=== PATIENT | female | born 1955 | race Caucasian/White ===

== ENCOUNTER 2018-07-22 17:00 | Inpatient (IN) | payer BC ==
[~2018-07-22] VITALS: Ht 167.6 cm; Wt 90.8 kg
--- NOTE | ~2018-07-22 | ST ---
[place], [place] EXERCISE STRESS TEST REPORT NAME: VICKEY DÍAZ UNIT #: [id number] ROOM: 405 DOCTOR: MARTIN MORGAN MD BIRTHDATE: [birth year] DOS: 07/23/2018 TREADMILL TEST WITH CARDIOLITE The patient is a 62-year-old female admitted to [facility] with complaints of chest pains. Cardiac enzymes were checked. The patient was tested under standard Jose protocol and she exercised for a total of 6 minutes, reaching a heart rate of 142 beats per minute, which was 89% of the PMHR. The test was stopped because of patient's fatigue. Blood pressures ranged between 144 systolic over 90 diastolic to as high as 180 systolic over 86 diastolic, heart rate ranged between 74 to 142 beats per minute. The patient remained without chest pains. The patient was injected with Cardiolite during the peak phase of exercise. IMPRESSION: Normal EKG part of the treadmill Cardiolite nuclear stress test at 89% predicted maximal heart rate. Cardiolite results to be reported separately by Dr. Cardenas later today. MARTIN MORGAN MD CM:STRESS:EXERCISE STRESS TEST REPORT [id number] MARTIN MORGAN MD
--- NOTE | ~2018-07-22 | WRIGHTHP ---
[place], [place] PATIENT HISTORY AND PHYSICAL EXAM [id number] UNIT #: [id number] ROOM: 405 DOCTOR: MARTIN MORGAN MD BIRTHDATE: [birth year] DOS: 07/22/2018 HISTORY OF PRESENT ILLNESS: The patient is a 62-year-old female with complaints of chest pains, was admitted and ruled out for myocardial infarction with serial cardiac enzymes. Finally, the patient was taken for a cardiac stress test. No shortness of breath, nausea or diaphoresis. The pains were in the front of her chest and back and lasted about 2 hours yesterday. PAST MEDICAL HISTORY: 1. Hypothyroidism. 2. Benign essential hypertension. 3. Kidney stones. 4. Chronic pain syndrome. 5. Type 2 diabetes mellitus. 6. GERD and esophagitis. 7. Chronic lower back pains. REVIEW OF SYSTEMS: CARDIOVASCULAR: No complaints of palpitation. The patient had chest pains. RESPIRATORY: No increasing shortness of breath or wheezing. GASTROINTESTINAL: No nausea, vomiting, diarrhea, constipation. FAMILY HISTORY: Noncontributory. HOME MEDICATIONS: Victoza, Tylenol, Soma, Vicodin. ALLERGIES: Known allergies to MORPHINE. PHYSICAL EXAMINATION: GENERAL: Alert, oriented x 3, in no visible distress, moderately obese. HEENT AND NECK: Extraocular movements are intact. Sclerae are anicteric. Oral mucosa is moist and clean. No obvious facial weakness. Neck is supple without any lymphadenopathy. No thyromegaly. No JVD. No carotid arterial bruits. LUNGS: Clear to auscultation. No wheezing. No rhonchi. CARDIOVASCULAR SYSTEM: Heart rate is regular in rate and rhythm. S1 and S2 normally audible. No significant murmur or any other abnormal cardiac sounds. ABDOMEN: Soft, nontender. No obvious organomegaly. Bowel sounds are present. No obvious herniation. EXTREMITIES: Without significant cyanosis or edema. Warm to touch. CENTRAL NERVOUS SYSTEM: Alert and oriented x 3. Cranial nerves II-XII are intact. Speech is normal. The patient is able to move all extremities. Normal muscle strength. Deep tendon reflexes are equal on both sides. Plantars were downgoing. LABORATORY DATA: Three negative troponin I levels. IMPRESSION AND PLAN: 1. 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 If test is also negative, she will be discharged to home. [place], [place] PATIENT HISTORY AND PHYSICAL EXAM NAME: VICKEY DÍAZ UNIT #: [id number] ROOM: 405 DOCTOR: EDDIE ROSS,MARTIN Rodriguez BIRTHDATE: [birth year] 2. Chronic lower back pains and lumbar spondylosis, treated with Soma and hydrocodone. 3. Benign essential hypertension with elevated blood pressures, which we will continue to self-regulate as an outpatient. 4. Type 2 diabetes mellitus. The patient's Victoza was continued. MARTIN MORGAN MD CM:HISPHYS:PATIENT HISTORY AND PHYSICAL EXAMINATION [id number] MARTIN MORGAN MD 07/23/18 0923 interface
[~2018-07-22 17:00] MED LIST: AMOXICILLIN875 MG PO; AUGMENTIN 875875 MG PO; CARISOPRODOL350 M1 PO; FLUTICASON0.05 MG/AC NAS; LEVOXYL0.125 MG PO; OMEPRAZOLE20 M2 PO; VALSARTAN160 MG PO; VICODIN ES 7.51 EACH PO; VICTOZA6 MG/ML SC
[2018-07-22 17:53] VITALS: BP 185/75
[2018-07-22 20:00] VITALS: BP 156/88
[2018-07-23] VITALS: BP 180/90
[2018-07-23 01:40] VITALS: BP 160/84
[2018-07-23 08:00] VITALS: BP 158/90
[2018-07-23 12:00] VITALS: BP 148/74
== END 2018-07-23 12:55 | disposition home or self-care (01) | DRG 313 ==
LOC: 4E 17:00
PROC: 4A02XM4 Measurement of Cardiac Total Activity, External Approach (ICD-10-PCS; principal; 2018-07-23)
PROC: 3E073KZ Introduction of Other Diagnostic Substance into Coronary Artery, Percutaneous Approach (ICD-10-PCS; principal; 2018-07-23)
DX: R07.9 Chest pain, unspecified (principal); K21.9 Gastro-esophageal reflux disease without esophagitis; I10 Essential (primary) hypertension; G89.4 Chronic pain syndrome; E11.9 Type 2 diabetes mellitus without complications; E03.9 Hypothyroidism, unspecified; M54.5 Low back pain; M47.896 Other spondylosis, lumbar region; Z87.442 Personal history of urinary calculi; Z88.5 Allergy status to narcotic agent

== ENCOUNTER 2020-03-24 16:27 | Emergency (ER) | payer BC ==
[~2020-03-24] VITALS: Ht 167.6 cm; Wt 86.2 kg
[2020-03-24 17:37] LABS: BASO % 0.4 % (0.0-1.0); EOS % 0.2 % (1.0-4.0); HEMATOCRIT 44.9 % (37.0-47.0); LYMPH # 0.8 10*3/uL (1.3-4.4); LYMPH % 14.8 % (27.0-41.0); MEAN CELL VOLUME 84.7 fl (81.0-99.0); MEAN CORPUSCULAR HGB 28.1 pg (27.0-31.0); MEAN CORPUSCULAR HGB CONC 33.2 g/dl (33.0-37.0); MONO # 0.4 10*3/uL (0.1-1.0); MONO % 7.3 % (3.0-9.0); NEUT % 77.1 % (47.0-73.0); PLATELET COUNT AUTOMATED 237 10*3/uL (130-400); RED CELL DISTRI WIDTH 12.6 % (0-14.5); WHITE BLOOD COUNT 5.2 10*3/uL (4.8-10.8)
[2020-03-24 17:49] LABS: ACT PARTIAL THROMBO TIME 26.6 SECONDS (20.0-32.1)
[2020-03-24 17:54] LABS: ALBUMIN 3.5 gm/dl (3.1-4.5); ALKALINE PHOSPHATASE 146 U/L (45-117); BUN 15 mg/dl (7-24); CHLORIDE 105 mmol/L (98-107); CREATININE 1.22 mg/dL (0.55-1.02); LDH 223 U/L (84-246); POTASSIUM 4.1 mmol/L (3.5-5.1); SGOT/AST 39 IU/L (3-35); SGPT/ALT 59 U/L (12-78); SODIUM 137 mmol/L (136-145); TOTAL PROTEIN 7.9 gm/dL (6.4-8.2)
[2020-03-24 17:55] LABS: TROPONIN I < 0.015 ng/ml (<0.045)
[2020-03-24 18:52] VITALS: BP 137/65
[2020-03-24 19:28] LABS: BACTERIA 2+; BILIRUBIN NEGATIVE (NEGATIVE); BLOOD NEGATIVE (NEGATIVE); CALCIUM OXALATE CRYSTALS 2+; CLARITY SL CLOUDY (CLEAR); COLOR YELLOW (YELLOW); GLUCOSE NEGATIVE (NEGATIVE); KETONE NEGATIVE (NEGATIVE); LEUKO ESTERASE 1+ (NEGATIVE); MUCOUS 2+; NITRITE NEGATIVE (NEGATIVE); PH 6.5 (5.0-9.0); SPECIFIC GRAVITY 1.015 (1.005-1.030); UROBILINOGEN 0.2 E.U./dl (0.2-1.0); WBC 41-50 wbc/hpf (0-5)
== END 2020-03-24 19:45 | disposition home or self-care (01) ==
LOC: ED 16:27
PROVIDERS: Emergency Medicine
DX: B34.9 Viral infection, unspecified (principal); R79.82 Elevated C-reactive protein (CRP); D72.810 Lymphocytopenia; R79.1 Abnormal coagulation profile; Z88.5 Allergy status to narcotic agent; Z79.899 Other long term (current) drug therapy; Z20.828 Contact with and (suspected) exposure to other viral communicable diseases

== ENCOUNTER 2020-05-04 11:09 | Inpatient (IN) | payer BC ==
[~2020-05-04] VITALS: Ht 167.6 cm; Wt 87.7 kg
[~2020-05-04 11:09] MED LIST changes: +HYDROCODON-ACE1 EACH PO; -VICODIN ES 7.51 EACH PO
[2020-05-04 11:10] VITALS: BP 121/44
[2020-05-04 11:48] LABS: BASO % 0.3 % (0.0-1.0); EOS % 0.1 % (1.0-4.0); HEMATOCRIT 44.7 % (37.0-47.0); LYMPH # 1.2 10*3/uL (1.3-4.4); LYMPH % 16.4 % (27.0-41.0); MEAN CELL VOLUME 88.2 fl (81.0-99.0); MEAN CORPUSCULAR HGB CONC 31.8 g/dl (33.0-37.0); MONO # 0.5 10*3/uL (0.1-1.0); MONO % 6.5 % (3.0-9.0); NEUT # 5.6 10*3/uL (2.3-7.9); NEUT % 76.4 % (47.0-73.0); PLATELET COUNT AUTOMATED 270 10*3/uL (130-400); RED BLOOD COUNT 5.07 10*6/uL (4.10-5.10); RED CELL DISTRI WIDTH 13.9 % (0-14.5); WHITE BLOOD COUNT 7.4 10*3/uL (4.8-10.8)
[2020-05-04 11:58] LABS: ACT PARTIAL THROMBO TIME 27.4 SECONDS (20.0-32.1)
[2020-05-04 12:00] VITALS: BP 165/69
[2020-05-04 12:06] LABS: ALBUMIN 3.6 gm/dl (3.1-4.5); ALKALINE PHOSPHATASE 92 U/L (45-117); BUN 12 mg/dl (7-24); CHLORIDE 108 mmol/L (98-107); SGOT/AST 6 IU/L (3-35); SGPT/ALT 22 U/L (12-78); SODIUM 139 mmol/L (136-145); TOTAL PROTEIN 7.4 gm/dL (6.4-8.2)
[2020-05-04 12:07] LABS: TROPONIN I < 0.015 ng/ml (<0.045)
--- NOTE | 2020-05-04 13:07 | NUR ---
REVIEWED MEDS ORDERED FOR PT PAIN AND DISCOMFORT PT STATES "THE ONLY THING THAT WORKS IS DILADID" AND THAT TORODOL MAKES HER NAUSEATED. 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
[2020-05-04 13:27] LABS: BILIRUBIN NEGATIVE (NEGATIVE); BLOOD NEGATIVE (NEGATIVE); CLARITY CLEAR (CLEAR); COLOR YELLOW (YELLOW); GLUCOSE NEGATIVE (NEGATIVE); KETONE 1+ (NEGATIVE); LEUKO ESTERASE NEGATIVE (NEGATIVE); NITRITE NEGATIVE (NEGATIVE); SPECIFIC GRAVITY 1.015 (1.005-1.030); UROBILINOGEN 0.2 E.U./dl (0.2-1.0)
--- NOTE | 2020-05-04 13:27 | NUR ---
PT AGAIN OFFERED TORADOL PT AGAIN REFUSED STATES IS MAKES HER "WOOZY AND SICK" SHAYLA CARR ADVISED
[2020-05-04 13:29] LABS: BACTERIA TRACE
--- NOTE | 2020-05-04 13:37 | NUR ---
AFTER ADVISING PT THAT DILADID WAS NOT AN OPTION PT HAD RECONSIDERED AND DECIDED TO TRY REGALAN AND BENADRYL
[2020-05-04 14:20] VITALS: BP 156/55
--- NOTE | 2020-05-04 16:51 | NUR ---
THE PATIENT WAS GIVEN HER MEAL TRAY AND A BARTOLOME DARLEEN
--- NOTE | 2020-05-04 17:02 | NUR ---
RESTING IN NO DISTRESS. HAS FINISHED HER DINNER.
[2020-05-04 18:00] VITALS: BP 132/55
--- NOTE | 2020-05-04 18:00 | NUR ---
Time: 1800 A 64 year old FEMALE admitted to 5E under services of DR. EDDIE ROSS,MARTIN Rodriguez. Pt. arrived via wheel chair from ER. Chief complaint: INTRACTABLE HEADACHE, DEHYDRATION. PATIENT ORIENTED TO THE FLOOR 5E. PATIENT CARE FORMS REVIEWED AND COMPLETED CALL LIGHT SYSTEM REVIEWED AND DEMONSTRATED. JACLYN WARD
--- NOTE | 2020-05-04 18:30 | NUR ---
SPOKE WITH DR. MORGAN. PATIENT CONDITION REVIEWED. HOME MEDS REVIEWED AND RESTARTED. NO FURTHER ORDERS AT THIS TIME.
[2020-05-04 20:00] VITALS: BP 132/65
[2020-05-05] VITALS: BP 161/74
[2020-05-05 07:11] LABS: BASO % 0.3 % (0.0-1.0); EOS % 0.3 % (1.0-4.0); HEMATOCRIT 42.5 % (37.0-47.0); LYMPH # 1.4 10*3/uL (1.3-4.4); LYMPH % 23.1 % (27.0-41.0); MEAN CELL VOLUME 87.6 fl (81.0-99.0); MEAN CORPUSCULAR HGB 27.6 pg (27.0-31.0); MEAN CORPUSCULAR HGB CONC 31.5 g/dl (33.0-37.0); MONO # 0.5 10*3/uL (0.1-1.0); MONO % 7.7 % (3.0-9.0); NEUT # 4.2 10*3/uL (2.3-7.9); NEUT % 68.4 % (47.0-73.0); PLATELET COUNT AUTOMATED 249 10*3/uL (130-400); RED BLOOD COUNT 4.85 10*6/uL (4.10-5.10); RED CELL DISTRI WIDTH 13.6 % (0-14.5); WHITE BLOOD COUNT 6.1 10*3/uL (4.8-10.8)
[2020-05-05 07:16] LABS: ALBUMIN 3.4 gm/dl (3.1-4.5); ALKALINE PHOSPHATASE 83 U/L (45-117); BUN 9 mg/dl (7-24); CHLORIDE 106 mmol/L (98-107); CREATININE 0.78 mg/dL (0.55-1.02); POTASSIUM 3.8 mmol/L (3.5-5.1); SGOT/AST 8 IU/L (3-35); SGPT/ALT 19 U/L (12-78); SODIUM 138 mmol/L (136-145); TOTAL PROTEIN 6.9 gm/dL (6.4-8.2)
--- NOTE | 2020-05-05 07:43 | NUR ---
PHYSICAL THERAPY Screen received, pt admitted from home w intraceable headache, dehydration. Please consult PT if pts functional status declines from baseline. Thank you. Aldo Nava SPT Violetta Taylor PT
[2020-05-05 08:00] VITALS: BP 154/78
--- NOTE | 2020-05-05 09:00 | NUR ---
[employer] in to talk to patient. Patient states lives at home with her . There are 12 steps in the home. Physician: Dr. Rui Alfaro [facility] Home health services: none Patient's level of ADLs: independent Patient has working utilities: yes DME: none Follow-up physician's appointment after d/c: she prefers to make her own follow up appt after discharge Does patient want to access PORTAL?: no Discharge plan discussed with patient. She lives at home with her . She states she is independent in her ADLs and ambulation. Discussed home health care services and she declines. CM will continue to follow for any discharge planning needs. When medically stable she will be discharged to home. She states her son will provide transportation on discharge. CORRY ZAIDI
[2020-05-05 12:00] VITALS: BP 151/64
--- NOTE | 2020-05-05 12:15 | NUR ---
DR. MORGAN IN TO SEE PATIENT, ORDERS RECEIVED.
--- NOTE | 2020-05-05 14:41 | NUR ---
Nutritional Support Services Note: Appetite is poor for meals. She receives a NCS diet as ordered. Pt has complaints of N/V. Wound noted to left knee after fall at home on Friday. Pt states it is healing. Encouraged increased po intake to promote healing. Will provide pt with a night snack. Encouraged fluid intake. No other nutrition intervention needed at this time. Will follow if needed. Ranjana Nunez Rdn Ld
[2020-05-05 16:00] VITALS: BP 136/61
--- NOTE | 2020-05-05 17:21 | NUR ---
PT C/O HEADACHE AT THIS TIME & MEDICATED WITH MOTRIN PER PRN ORDER. WILL MONITOR.
--- NOTE | 2020-05-05 19:33 | NUR ---
24 HR CHART CHECK COMPLETE.
[2020-05-05 20:00] VITALS: BP 152/54
[2020-05-06] VITALS: BP 150/55
[2020-05-06 08:00] VITALS: BP 153/70
--- NOTE | 2020-05-06 08:35 | NUR ---
PT RESTING IN BED. NO DISTRESS NOTED. WILL MONITOR
[2020-05-06 12:00] VITALS: BP 165/69
[2020-05-06 16:00] VITALS: BP 137/53
--- NOTE | 2020-05-06 18:05 | NUR ---
PT REQUESTED AND GIVEN MOTRIN FOR C/O GEN PAIN . PT RATES PAIN 5/10 WILL MONITOR
--- NOTE | 2020-05-06 18:58 | NUR ---
RACHEL HELPED PER PT, WILL MONITOR
[2020-05-06 20:00] VITALS: BP 110/59
[2020-05-07] VITALS: BP 136/54
[2020-05-07 06:45] LABS: BASO % 0.5 % (0.0-1.0); EOS # 0.1 10*3/uL (0.0-0.4); EOS % 0.9 % (1.0-4.0); HEMATOCRIT 39.8 % (37.0-47.0); LYMPH # 1.4 10*3/uL (1.3-4.4); LYMPH % 23.7 % (27.0-41.0); MEAN CELL VOLUME 85.8 fl (81.0-99.0); MEAN CORPUSCULAR HGB CONC 32.7 g/dl (33.0-37.0); MEAN PLATELET VOLUME 9.7 fl (9.6-12.3); MONO # 0.5 10*3/uL (0.1-1.0); MONO % 8.1 % (3.0-9.0); NEUT # 3.9 10*3/uL (2.3-7.9); NEUT % 66.6 % (47.0-73.0); PLATELET COUNT AUTOMATED 231 10*3/uL (130-400); RED BLOOD COUNT 4.64 10*6/uL (4.10-5.10); RED CELL DISTRI WIDTH 13.5 % (0-14.5); WHITE BLOOD COUNT 5.8 10*3/uL (4.8-10.8)
[2020-05-07 07:02] LABS: ALBUMIN 2.9 gm/dl (3.1-4.5); BUN 13 mg/dl (7-24); CHLORIDE 111 mmol/L (98-107); CREATININE 0.77 mg/dL (0.55-1.02); POTASSIUM 3.7 mmol/L (3.5-5.1); SGOT/AST 8 IU/L (3-35); SGPT/ALT 17 U/L (12-78); SODIUM 138 mmol/L (136-145)
[2020-05-07 07:04] LABS: ALKALINE PHOSPHATASE 79 U/L (45-117); TOTAL PROTEIN 6.1 gm/dL (6.4-8.2)
[2020-05-07 08:00] VITALS: BP 154/71
--- NOTE | 2020-05-07 08:45 | NUR ---
PT RESTING IN BED NO DISTRESS NOTED. WILL MONITOR DR ROSE HERE TO SEE PT
--- NOTE | 2020-05-07 10:59 | NUR ---
PT REFUSED DC WOUND PHOTOS
--- NOTE | 2020-05-07 11:35 | NUR ---
Discharge instructions reviewed with patient/family. Patient receptive and verbalizes understanding. Follow-up care arranged. Written instructions given to patient/family. KARIME GARNICA
== END 2020-05-07 11:35 | disposition home or self-care (01) | DRG 392 ==
LOC: ED 11:09 → 5E 15:19 → EDHOLD 15:19 → 5E 17:34
PROVIDERS: Internal Medicine; Nurse Practitioner Family; ADMIT Internal Medicine; ATTEND Internal Medicine
DX: A08.4 Viral intestinal infection, unspecified (principal); F11.23 Opioid dependence with withdrawal; E44.1 Mild protein-calorie malnutrition; E03.9 Hypothyroidism, unspecified; N20.0 Calculus of kidney; I10 Essential (primary) hypertension; E86.0 Dehydration; E11.8 Type 2 diabetes mellitus with unspecified complications; D25.9 Leiomyoma of uterus, unspecified; G89.29 Other chronic pain; M54.9 Dorsalgia, unspecified; G44.209 Tension-type headache, unspecified, not intractable; Z20.828 Contact with and (suspected) exposure to other viral communicable diseases; M47.816 Spondylosis without myelopathy or radiculopathy, lumbar region; K21.9 Gastro-esophageal reflux disease without esophagitis; J01.90 Acute sinusitis, unspecified; B96.89 Other specified bacterial agents as the cause of diseases classified elsewhere; E87.6 Hypokalemia; Z68.32 Body mass index [BMI] 32.0-32.9, adult

== ENCOUNTER 2020-10-09 11:22 | Emergency (ER) | payer BC ==
[~2020-10-09] VITALS: Wt 88.5 kg
[2020-10-09 11:50] LABS: BASO # 0.1 10*3/uL (0.0-0.1); BASO % 0.5 % (0.0-1.0); EOS # 0.2 10*3/uL (0.0-0.4); EOS % 1.7 % (1.0-4.0); HEMATOCRIT 43.7 % (37.0-47.0); LYMPH # 3.2 10*3/uL (1.3-4.4); LYMPH % 33.8 % (27.0-41.0); MEAN CELL VOLUME 88.1 fl (81.0-99.0); MEAN CORPUSCULAR HGB 28.2 pg (27.0-31.0); MONO % 11.2 % (3.0-9.0); NEUT # 4.9 10*3/uL (2.3-7.9); NEUT % 52.5 % (47.0-73.0); PLATELET COUNT AUTOMATED 353 10*3/uL (130-400); RED BLOOD COUNT 4.96 10*6/uL (4.10-5.10); RED CELL DISTRI WIDTH 12.5 % (0-14.5); WHITE BLOOD COUNT 9.3 10*3/uL (4.8-10.8)
[2020-10-09 12:00] LABS: ACT PARTIAL THROMBO TIME 26.5 SECONDS (20.0-32.1); INTERNATIONAL NORM RATIO 0.9 (2.0-3.5)
[2020-10-09 12:07] LABS: ALBUMIN 3.4 gm/dl (3.1-4.5); ALKALINE PHOSPHATASE 102 U/L (45-117); BUN 16 mg/dl (7-24); CHLORIDE 110 mmol/L (98-107); POTASSIUM 3.3 mmol/L (3.5-5.1); SGOT/AST 10 IU/L (3-35); SGPT/ALT 21 U/L (12-78); SODIUM 140 mmol/L (136-145); TOTAL PROTEIN 7.2 gm/dL (6.4-8.2)
[2020-10-09 12:09] LABS: TROPONIN I < 0.015 ng/ml (<0.045)
[2020-10-09 14:58] VITALS: BP 124/67
== END 2020-10-09 15:34 | disposition home or self-care (01) ==
LOC: ED 11:22
PROVIDERS: Emergency Medicine
DX: K80.50 Calculus of bile duct without cholangitis or cholecystitis without obstruction (principal); Z88.6 Allergy status to analgesic agent; Z79.899 Other long term (current) drug therapy

== ENCOUNTER 2021-05-27 17:32 | Inpatient (IN) | payer BC ==
[~2021-05-27] VITALS: Ht 170.2 cm
[2021-05-27] VITALS (9 sets, daily range): BP systolic 86–134; BP diastolic 46–81
[2021-05-27 18:25] LABS: HEMATOCRIT 47.1 % (37.0-47.0); MEAN CELL VOLUME 84.4 fl (81.0-99.0); MEAN CORPUSCULAR HGB CONC 33.1 g/dl (33.0-37.0); MEAN PLATELET VOLUME 10.5 fl (9.6-12.3); PLATELET COUNT AUTOMATED 205 10*3/uL (130-400); RED BLOOD COUNT 5.58 10*6/uL (4.10-5.10); WHITE BLOOD COUNT 3.8 10*3/uL (4.8-10.8)
[2021-05-27 18:40] LABS: ALBUMIN 3.1 gm/dl (3.1-4.5); CREATININE 1.21 mg/dL (0.55-1.02); POTASSIUM 3.2 mmol/L (3.5-5.1); TOTAL PROTEIN 7.1 gm/dL (6.4-8.2)
[2021-05-27 18:46] LABS: ATYPICAL LYMPHS 4 % (0-0); BURR CELLS FEW; PLATELET SUFFICIENCY LOW (NORMAL); TOTAL CELLS COUNTED 100 #CELLS
[2021-05-27] MEDS ORDERED: AMBIEN10 M1 PO (21:17)
[2021-05-27 21:45] LABS: ABG BASE EXCESS -1.8 mmol/L (-2.0-2.0); ARTERIAL BLOOD GAS PH 7.468 (7.35-7.45); ARTERIAL BLOOD GAS PO2 70.9 (80-90)
[2021-05-28] VITALS: BP 115/55
[2021-05-28 04:00] VITALS: BP 107/56
[2021-05-28 05:29] LABS: ALBUMIN 2.8 gm/dl (3.1-4.5); ALKALINE PHOSPHATASE 64 U/L (45-117); BUN 26 mg/dl (7-24); CHLORIDE 99 mmol/L (98-107); CPK 273 U/L (26-192); CREATININE 1.07 mg/dL (0.55-1.02); LDH 392 U/L (84-246); POTASSIUM 3.8 mmol/L (3.5-5.1); SGOT/AST 51 IU/L (3-35); SGPT/ALT 40 U/L (12-78); SODIUM 132 mmol/L (136-145); TOTAL PROTEIN 6.7 gm/dL (6.4-8.2)
[2021-05-28 05:47] LABS: HEMATOCRIT 43.9 % (37.0-47.0); LYMPH # 0.5 10*3/uL (1.3-4.4); MEAN CELL VOLUME 84.6 fl (81.0-99.0); MEAN CORPUSCULAR HGB 28.5 pg (27.0-31.0); MEAN CORPUSCULAR HGB CONC 33.7 g/dl (33.0-37.0); MEAN PLATELET VOLUME 10.7 fl (9.6-12.3); MONO # 0.2 10*3/uL (0.1-1.0); MONO % 6.4 % (3.0-9.0); NEUT # 2.6 10*3/uL (2.3-7.9); NEUT % 78.3 % (47.0-73.0); PLATELET COUNT AUTOMATED 157 10*3/uL (130-400); RED BLOOD COUNT 5.19 10*6/uL (4.10-5.10); RED CELL DISTRI WIDTH 13.2 % (0-14.5); WHITE BLOOD COUNT 3.3 10*3/uL (4.8-10.8)
[2021-05-28 08:00] VITALS: BP 110/54
[2021-05-28 12:00] VITALS: BP 117/47
[2021-05-28 15:08] LABS: BILIRUBIN Negative (Negative); BLOOD Negative (Negative); CLARITY Clear (Clear); COLOR Yellow (Yellow); GLUCOSE Negative (Negative); KETONE Trace (Negative); LEUKO ESTERASE Negative (Negative); NITRITE Negative (Negative); PH 5.5 (4.5-8.0); SPECIFIC GRAVITY 1.025 (1.001-1.030)
[2021-05-28 15:18] LABS: BACTERIA TRACE; EPITHELIAL CELLS 0-2; RBC 0-2 rbc/hpf (0-2); WBC 0-2 wbc/hpf (0-5)
[2021-05-28 16:00] VITALS: BP 122/47
[2021-05-28 20:00] VITALS: BP 106/42
[2021-05-29] VITALS: BP 103/39
[2021-05-29 04:00] VITALS: BP 101/43
[2021-05-29 05:47] LABS: ALBUMIN 2.8 gm/dl (3.1-4.5); CREATININE 1.21 mg/dL (0.55-1.02); TOTAL PROTEIN 6.7 gm/dL (6.4-8.2)
[2021-05-29 06:16] LABS: BASO % 0.2 % (0.0-1.0); HEMATOCRIT 44.1 % (37.0-47.0); LYMPH # 0.5 10*3/uL (1.3-4.4); LYMPH % 10.7 % (27.0-41.0); MEAN CORPUSCULAR HGB 28.3 pg (27.0-31.0); MEAN CORPUSCULAR HGB CONC 33.3 g/dl (33.0-37.0); MEAN PLATELET VOLUME 10.7 fl (9.6-12.3); MONO # 0.4 10*3/uL (0.1-1.0); MONO % 9.3 % (3.0-9.0); NEUT # 3.5 10*3/uL (2.3-7.9); NEUT % 79.1 % (47.0-73.0); PLATELET COUNT AUTOMATED 181 10*3/uL (130-400); RED BLOOD COUNT 5.19 10*6/uL (4.10-5.10); WHITE BLOOD COUNT 4.4 10*3/uL (4.8-10.8)
[2021-05-29 08:00] VITALS: BP 112/56; BP 122/87
[2021-05-29 12:00] VITALS: BP 129/45
[2021-05-29 16:00] VITALS: BP 112/45
[2021-05-29 20:00] VITALS: BP 115/50
[2021-05-30] VITALS: BP 109/46
[2021-05-30 04:00] VITALS: BP 116/48
[2021-05-30 06:49] LABS: HEMATOCRIT 42.9 % (37.0-47.0); LYMPH # 0.6 10*3/uL (1.3-4.4); LYMPH % 10.5 % (27.0-41.0); MEAN CELL VOLUME 84.8 fl (81.0-99.0); MEAN CORPUSCULAR HGB 27.9 pg (27.0-31.0); MEAN CORPUSCULAR HGB CONC 32.9 g/dl (33.0-37.0); MEAN PLATELET VOLUME 10.4 fl (9.6-12.3); MONO # 0.6 10*3/uL (0.1-1.0); MONO % 10.9 % (3.0-9.0); NEUT # 4.3 10*3/uL (2.3-7.9); NEUT % 78.2 % (47.0-73.0); PLATELET COUNT AUTOMATED 216 10*3/uL (130-400); RED BLOOD COUNT 5.06 10*6/uL (4.10-5.10); RED CELL DISTRI WIDTH 13.1 % (0-14.5); WHITE BLOOD COUNT 5.5 10*3/uL (4.8-10.8)
[2021-05-30 07:04] LABS: ALBUMIN 2.6 gm/dl (3.1-4.5); ALKALINE PHOSPHATASE 56 U/L (45-117); BUN 36 mg/dl (7-24); CHLORIDE 100 mmol/L (98-107); CREATININE 0.97 mg/dL (0.55-1.02); LDH 431 U/L (84-246); POTASSIUM 3.8 mmol/L (3.5-5.1); SGOT/AST 30 IU/L (3-35); SGPT/ALT 31 U/L (12-78); SODIUM 135 mmol/L (136-145); TOTAL PROTEIN 6.4 gm/dL (6.4-8.2)
[2021-05-30 08:00] VITALS: BP 121/49
[2021-05-30 12:00] VITALS: BP 138/55
[2021-05-30 15:21] VITALS: BP 125/49
[2021-05-30 20:00] VITALS: BP 125/58
[2021-05-31] VITALS: BP 132/48
[2021-05-31 04:00] VITALS: BP 118/42
[2021-05-31 08:00] VITALS: BP 124/46
[2021-05-31 12:00] VITALS: BP 114/65
[2021-05-31 16:00] VITALS: BP 122/48
[2021-05-31 20:00] VITALS: BP 125/38
[2021-06-01] VITALS: BP 93/36
[2021-06-01 04:00] VITALS: BP 101/33
[2021-06-01 06:15] LABS: ALBUMIN 2.6 gm/dl (3.1-4.5); ALKALINE PHOSPHATASE 59 U/L (45-117); CHLORIDE 106 mmol/L (98-107); CREATININE 0.78 mg/dL (0.55-1.02); LDH 421 U/L (84-246); POTASSIUM 4.1 mmol/L (3.5-5.1); SGOT/AST 29 IU/L (3-35); SGPT/ALT 35 U/L (12-78); SODIUM 139 mmol/L (136-145); TOTAL PROTEIN 6.1 gm/dL (6.4-8.2)
[2021-06-01 06:17] LABS: BUN 20 mg/dl (7-24)
[2021-06-01 06:32] LABS: BASO % 0.2 % (0.0-1.0); HEMATOCRIT 43.3 % (37.0-47.0); LYMPH # 0.7 10*3/uL (1.3-4.4); LYMPH % 7.4 % (27.0-41.0); MEAN CELL VOLUME 87.3 fl (81.0-99.0); MEAN CORPUSCULAR HGB CONC 32.1 g/dl (33.0-37.0); MEAN PLATELET VOLUME 10.6 fl (9.6-12.3); MONO # 0.6 10*3/uL (0.1-1.0); MONO % 6.6 % (3.0-9.0); NEUT # 8.1 10*3/uL (2.3-7.9); NEUT % 85.4 % (47.0-73.0); PLATELET COUNT AUTOMATED 252 10*3/uL (130-400); RED BLOOD COUNT 4.96 10*6/uL (4.10-5.10); WHITE BLOOD COUNT 9.5 10*3/uL (4.8-10.8)
[2021-06-01 08:00] VITALS: BP 91/46
[2021-06-01 12:00] VITALS: BP 91/46
[2021-06-01 16:00] VITALS: BP 115/46
[2021-06-01 20:00] VITALS: BP 115/55
[2021-06-02] VITALS: BP 103/61
[2021-06-02 04:00] VITALS: BP 129/54
[2021-06-02 06:17] LABS: BASO % 0.1 % (0.0-1.0); HEMATOCRIT 40.6 % (37.0-47.0); LYMPH # 0.7 10*3/uL (1.3-4.4); LYMPH % 5.9 % (27.0-41.0); MEAN CELL VOLUME 87.7 fl (81.0-99.0); MEAN CORPUSCULAR HGB 28.1 pg (27.0-31.0); MEAN PLATELET VOLUME 10.4 fl (9.6-12.3); MONO # 0.4 10*3/uL (0.1-1.0); MONO % 3.6 % (3.0-9.0); NEUT # 10.3 10*3/uL (2.3-7.9); NEUT % 89.7 % (47.0-73.0); PLATELET COUNT AUTOMATED 266 10*3/uL (130-400); RED BLOOD COUNT 4.63 10*6/uL (4.10-5.10); RED CELL DISTRI WIDTH 13.1 % (0-14.5); WHITE BLOOD COUNT 11.4 10*3/uL (4.8-10.8)
[2021-06-02 06:50] LABS: ALBUMIN 2.5 gm/dl (3.1-4.5); ALKALINE PHOSPHATASE 56 U/L (45-117); BUN 16 mg/dl (7-24); CHLORIDE 105 mmol/L (98-107); CREATININE 0.72 mg/dL (0.55-1.02); LDH 425 U/L (84-246); POTASSIUM 4.1 mmol/L (3.5-5.1); SGOT/AST 20 IU/L (3-35); SGPT/ALT 30 U/L (12-78); SODIUM 141 mmol/L (136-145); TOTAL PROTEIN 5.5 gm/dL (6.4-8.2)
[2021-06-02 08:00] VITALS: BP 133/55
[2021-06-02 12:00] VITALS: BP 113/60
[2021-06-02 15:17] VITALS: BP 134/52
[2021-06-02 20:00] VITALS: BP 134/52
[2021-06-03] VITALS: BP 139/74
[2021-06-03 04:00] VITALS: BP 125/40
[2021-06-03 06:06] LABS: HEMATOCRIT 38.7 % (37.0-47.0); MEAN CORPUSCULAR HGB 28.1 pg (27.0-31.0); MEAN CORPUSCULAR HGB CONC 32.3 g/dl (33.0-37.0); MEAN PLATELET VOLUME 10.2 fl (9.6-12.3); PLATELET COUNT AUTOMATED 290 10*3/uL (130-400); RED BLOOD COUNT 4.45 10*6/uL (4.10-5.10); RED CELL DISTRI WIDTH 13.1 % (0-14.5); WHITE BLOOD COUNT 10.4 10*3/uL (4.8-10.8)
[2021-06-03 06:12] LABS: ALBUMIN 2.2 gm/dl (3.1-4.5); ALKALINE PHOSPHATASE 54 U/L (45-117); BUN 12 mg/dl (7-24); CHLORIDE 106 mmol/L (98-107); CREATININE 0.71 mg/dL (0.55-1.02); LDH 386 U/L (84-246); POTASSIUM 4.1 mmol/L (3.5-5.1); SGOT/AST 17 IU/L (3-35); SGPT/ALT 24 U/L (12-78); SODIUM 139 mmol/L (136-145); TOTAL PROTEIN 6.1 gm/dL (6.4-8.2)
[2021-06-03 07:22] LABS: PLATELET SUFFICIENCY NORMAL (NORMAL); TOTAL CELLS COUNTED 100 #CELLS
[2021-06-03 08:00] VITALS: BP 121/52
[2021-06-03 11:13] VITALS: BP 109/38
[2021-06-03 16:00] VITALS: BP 122/65
[2021-06-03 20:00] VITALS: BP 147/57
[2021-06-04] VITALS: BP 125/54
[2021-06-04 04:00] VITALS: BP 138/50
[2021-06-04 06:02] LABS: ALBUMIN 2.2 gm/dl (3.1-4.5); BUN 14 mg/dl (7-24); CHLORIDE 103 mmol/L (98-107); CREATININE 0.75 mg/dL (0.55-1.02); POTASSIUM 4.4 mmol/L (3.5-5.1); SGOT/AST 17 IU/L (3-35); SGPT/ALT 24 U/L (12-78); SODIUM 135 mmol/L (136-145)
[2021-06-04 06:04] LABS: ALKALINE PHOSPHATASE 57 U/L (45-117); TOTAL PROTEIN 6.5 gm/dL (6.4-8.2)
[2021-06-04 06:18] LABS: BASO % 0.1 % (0.0-1.0); EOS % 0.3 % (1.0-4.0); HEMATOCRIT 41.3 % (37.0-47.0); LYMPH # 0.4 10*3/uL (1.3-4.4); LYMPH % 3.8 % (27.0-41.0); MEAN CELL VOLUME 87.9 fl (81.0-99.0); MEAN CORPUSCULAR HGB 28.3 pg (27.0-31.0); MEAN CORPUSCULAR HGB CONC 32.2 g/dl (33.0-37.0); MEAN PLATELET VOLUME 10.2 fl (9.6-12.3); MONO # 0.5 10*3/uL (0.1-1.0); MONO % 4.7 % (3.0-9.0); NEUT % 89.9 % (47.0-73.0); PLATELET COUNT AUTOMATED 309 10*3/uL (130-400); RED CELL DISTRI WIDTH 13.2 % (0-14.5)
[2021-06-04 07:49] LABS: ABG BASE EXCESS 3.9 mmol/L (-2.0-2.0); ARTERIAL BLOOD GAS PH 7.492 (7.35-7.45); ARTERIAL BLOOD GAS PO2 47.1 (80-90)
[2021-06-04 08:00] VITALS: BP 136/44
[2021-06-04 12:00] VITALS: BP 130/43
[2021-06-04 16:00] VITALS: BP 121/55
[2021-06-04 20:00] VITALS: BP 125/59
[2021-06-05] VITALS: BP 145/64
[2021-06-05 04:00] VITALS: BP 144/47
[2021-06-05 06:45] LABS: CHLORIDE 105 mmol/L (98-107); POTASSIUM 4.2 mmol/L (3.5-5.1); SODIUM 137 mmol/L (136-145)
[2021-06-05 07:05] LABS: ALBUMIN 2.1 gm/dl (3.1-4.5); ALKALINE PHOSPHATASE 63 U/L (45-117); BUN 15 mg/dl (7-24); CREATININE 0.75 mg/dL (0.55-1.02); SGOT/AST 16 IU/L (3-35); SGPT/ALT 24 U/L (12-78); TOTAL PROTEIN 6.4 gm/dL (6.4-8.2)
[2021-06-05 08:00] VITALS: BP 144/56
[2021-06-05 12:00] VITALS: BP 123/59
[2021-06-05 16:00] VITALS: BP 160/65
[2021-06-05 20:00] VITALS: BP 128/55
[2021-06-06] VITALS: BP 138/62
[2021-06-06 04:00] VITALS: BP 146/71
[2021-06-06 06:25] LABS: ALBUMIN 2.1 gm/dl (3.1-4.5); ALKALINE PHOSPHATASE 61 U/L (45-117); BUN 15 mg/dl (7-24); CHLORIDE 105 mmol/L (98-107); CREATININE 0.71 mg/dL (0.55-1.02); POTASSIUM 4.3 mmol/L (3.5-5.1); SGOT/AST 14 IU/L (3-35); SGPT/ALT 23 U/L (12-78); SODIUM 136 mmol/L (136-145); TOTAL PROTEIN 6.1 gm/dL (6.4-8.2)
[2021-06-06 08:00] VITALS: BP 146/42; BP 146/46
[2021-06-06 12:00] VITALS: BP 120/35
[2021-06-06 16:00] VITALS: BP 145/55
[2021-06-06 20:00] VITALS: BP 145/65
[2021-06-07] VITALS: BP 140/68
[2021-06-07 04:00] VITALS: BP 142/45
[2021-06-07 06:02] LABS: BASO % 0.1 % (0.0-1.0); EOS # 0.2 10*3/uL (0.0-0.4); HEMATOCRIT 42.4 % (37.0-47.0); LYMPH # 0.6 10*3/uL (1.3-4.4); LYMPH % 7.7 % (27.0-41.0); MEAN CELL VOLUME 89.5 fl (81.0-99.0); MEAN CORPUSCULAR HGB 28.5 pg (27.0-31.0); MEAN CORPUSCULAR HGB CONC 31.8 g/dl (33.0-37.0); MEAN PLATELET VOLUME 9.7 fl (9.6-12.3); MONO # 0.6 10*3/uL (0.1-1.0); MONO % 7.3 % (3.0-9.0); NEUT # 6.5 10*3/uL (2.3-7.9); NEUT % 81.3 % (47.0-73.0); PLATELET COUNT AUTOMATED 225 10*3/uL (130-400); RED BLOOD COUNT 4.74 10*6/uL (4.10-5.10)
[2021-06-07 06:10] LABS: CREATININE 0.84 mg/dL (0.55-1.02); LDH 475 U/L (84-246)
[2021-06-07 08:00] VITALS: BP 128/54
[2021-06-07 12:00] VITALS: BP 130/52
[2021-06-07 16:00] VITALS: BP 149/60
[2021-06-07 21:00] VITALS: BP 155/70
[2021-06-08] VITALS: BP 143/58
[2021-06-08 04:00] VITALS: BP 155/56
[2021-06-08 08:00] VITALS: BP 102/60
[2021-06-08 12:00] VITALS: BP 123/52
[2021-06-08 16:00] VITALS: BP 154/67
[2021-06-08 20:00] VITALS: BP 156/65
[2021-06-09] VITALS: BP 132/51
[2021-06-09 04:00] VITALS: BP 144/74
[2021-06-09 06:07] LABS: ALBUMIN 2.3 gm/dl (3.1-4.5); ALKALINE PHOSPHATASE 75 U/L (45-117); BUN 14 mg/dl (7-24); CHLORIDE 103 mmol/L (98-107); CREATININE 0.81 mg/dL (0.55-1.02); LDH 544 U/L (84-246); POTASSIUM 4.2 mmol/L (3.5-5.1); SGOT/AST 22 IU/L (3-35); SGPT/ALT 39 U/L (12-78); SODIUM 135 mmol/L (136-145); TOTAL PROTEIN 6.1 gm/dL (6.4-8.2)
[2021-06-09 06:11] LABS: BASO % 0.2 % (0.0-1.0); EOS # 0.1 10*3/uL (0.0-0.4); EOS % 0.4 % (1.0-4.0); HEMATOCRIT 41.2 % (37.0-47.0); LYMPH % 8.1 % (27.0-41.0); MEAN CELL VOLUME 87.3 fl (81.0-99.0); MEAN CORPUSCULAR HGB 28.4 pg (27.0-31.0); MEAN CORPUSCULAR HGB CONC 32.5 g/dl (33.0-37.0); MEAN PLATELET VOLUME 9.7 fl (9.6-12.3); MONO # 0.8 10*3/uL (0.1-1.0); MONO % 6.6 % (3.0-9.0); NEUT # 10.2 10*3/uL (2.3-7.9); NEUT % 83.6 % (47.0-73.0); PLATELET COUNT AUTOMATED 204 10*3/uL (130-400); RED BLOOD COUNT 4.72 10*6/uL (4.10-5.10); RED CELL DISTRI WIDTH 12.8 % (0-14.5); WHITE BLOOD COUNT 12.2 10*3/uL (4.8-10.8)
[2021-06-09 08:00] VITALS: BP 121/71
[2021-06-09 08:27] LABS: ARTERIAL BLOOD GAS PH 7.461 (7.35-7.45); ARTERIAL BLOOD GAS PO2 40.9 (80-90)
[2021-06-09 12:00] VITALS: BP 158/45
[2021-06-09 16:00] VITALS: BP 151/62
[2021-06-09 20:00] VITALS: BP 144/62
[2021-06-10] VITALS (13 sets, daily range): BP systolic 72–152; BP diastolic 35–103
[2021-06-10 06:14] LABS: BASO % 0.2 % (0.0-1.0); EOS # 0.1 10*3/uL (0.0-0.4); EOS % 0.5 % (1.0-4.0); HEMATOCRIT 43.7 % (37.0-47.0); LYMPH # 1.3 10*3/uL (1.3-4.4); LYMPH % 8.7 % (27.0-41.0); MEAN CELL VOLUME 85.2 fl (81.0-99.0); MEAN CORPUSCULAR HGB 28.1 pg (27.0-31.0); MEAN PLATELET VOLUME 9.9 fl (9.6-12.3); MONO % 6.8 % (3.0-9.0); NEUT % 82.1 % (47.0-73.0); PLATELET COUNT AUTOMATED 220 10*3/uL (130-400); RED BLOOD COUNT 5.13 10*6/uL (4.10-5.10); RED CELL DISTRI WIDTH 12.7 % (0-14.5); WHITE BLOOD COUNT 14.6 10*3/uL (4.8-10.8)
[2021-06-10 06:34] LABS: ALBUMIN 2.7 gm/dl (3.1-4.5); BUN 14 mg/dl (7-24); CHLORIDE 104 mmol/L (98-107); CREATININE 0.73 mg/dL (0.55-1.02); SGOT/AST 30 IU/L (3-35); SGPT/ALT 52 U/L (12-78); SODIUM 137 mmol/L (136-145); TOTAL PROTEIN 6.5 gm/dL (6.4-8.2)
[2021-06-10 06:35] LABS: ALKALINE PHOSPHATASE 87 U/L (45-117)
[2021-06-10 15:16] LABS: ABG BASE EXCESS -2.7 mmol/L (-2.0-2.0); ARTERIAL BLOOD GAS PH 7.259 (7.35-7.45); ARTERIAL BLOOD GAS PO2 60.4 (80-90)
[2021-06-10 22:43] LABS: ABG BASE EXCESS 1.8 mmol/L (-2.0-2.0); ARTERIAL BLOOD GAS PH 7.389 (7.35-7.45); ARTERIAL BLOOD GAS PO2 70.3 (80-90)
[2021-06-11] VITALS (60 sets, daily range): BP systolic 60–133; BP diastolic 14–94
[2021-06-11 07:20] LABS: ALBUMIN 2.7 gm/dl (3.1-4.5); CREATININE 1.55 mg/dL (0.55-1.02); TOTAL PROTEIN 6.2 gm/dL (6.4-8.2)
[2021-06-11 08:42] LABS: HEMATOCRIT 45.2 % (37.0-47.0); MEAN CORPUSCULAR HGB CONC 31.4 g/dl (33.0-37.0); MEAN PLATELET VOLUME 10.9 fl (9.6-12.3); PLATELET COUNT AUTOMATED 238 10*3/uL (130-400); RED BLOOD COUNT 5.07 10*6/uL (4.10-5.10); RED CELL DISTRI WIDTH 13.2 % (0-14.5); WHITE BLOOD COUNT 19.5 10*3/uL (4.8-10.8)
[2021-06-11 08:47] LABS: ABG BASE EXCESS -0.7 mmol/L (-2.0-2.0); ARTERIAL BLOOD GAS PH 7.408 (7.35-7.45); ARTERIAL BLOOD GAS PO2 74.3 (80-90)
[2021-06-11 08:53] LABS: MEAN CELL VOLUME 89.2 fl (81.0-99.0)
[2021-06-11 09:12] LABS: TOTAL CELLS COUNTED 100 #CELLS
[2021-06-11 09:13] LABS: PLATELET SUFFICIENCY NORMAL (NORMAL)
[2021-06-12] VITALS (91 sets, daily range): BP systolic 80–166; BP diastolic 27–85
[2021-06-12 06:13] LABS: ALBUMIN 2.4 gm/dl (3.1-4.5); CREATININE 1.76 mg/dL (0.55-1.02); POTASSIUM 4.5 mmol/L (3.5-5.1)
[2021-06-12 11:06] LABS: ACT PARTIAL THROMBO TIME 27.1 SECONDS (20.0-32.1)
[2021-06-12 11:12] LABS: FIBRIN DEGRADATION PRODUCTS >OR=20 ug/ml (< 5)
[2021-06-12 11:14] LABS: ARTERIAL BLOOD GAS PH 7.262 (7.35-7.45); ARTERIAL BLOOD GAS PO2 59.5 (80-90)
[2021-06-12 11:15] LABS: ABG BASE EXCESS -6.5 mmol/L (-2.0-2.0)
[2021-06-12 13:23] LABS: ABG BASE EXCESS -3.5 mmol/L (-2.0-2.0); ARTERIAL BLOOD GAS PH 7.302 (7.35-7.45); ARTERIAL BLOOD GAS PO2 87.7 (80-90)
[2021-06-12 17:01] LABS: ABG BASE EXCESS 0.5 mmol/L (-2.0-2.0); ARTERIAL BLOOD GAS PH 7.4 (7.35-7.45); ARTERIAL BLOOD GAS PO2 94.8 (80-90)
[2021-06-13] VITALS (94 sets, daily range): BP systolic 97–162; BP diastolic 33–66
[2021-06-13 05:36] LABS: ALBUMIN 1.9 gm/dl (3.1-4.5); CREATININE 1.13 mg/dL (0.55-1.02); POTASSIUM 3.8 mmol/L (3.5-5.1); TOTAL PROTEIN 5.1 gm/dL (6.4-8.2)
[2021-06-13 06:06] LABS: BASO % 0.2 % (0.0-1.0); EOS % 0.2 % (1.0-4.0); HEMATOCRIT 34.3 % (37.0-47.0); LYMPH % 5.5 % (27.0-41.0); MEAN CELL VOLUME 89.8 fl (81.0-99.0); MEAN CORPUSCULAR HGB 28.3 pg (27.0-31.0); MEAN CORPUSCULAR HGB CONC 31.5 g/dl (33.0-37.0); MONO # 0.9 10*3/uL (0.1-1.0); NEUT # 16.2 10*3/uL (2.3-7.9); NEUT % 87.6 % (47.0-73.0); PLATELET COUNT AUTOMATED 167 10*3/uL (130-400); RED BLOOD COUNT 3.82 10*6/uL (4.10-5.10); RED CELL DISTRI WIDTH 13.3 % (0-14.5); WHITE BLOOD COUNT 18.5 10*3/uL (4.8-10.8)
[2021-06-13 08:38] LABS: ARTERIAL BLOOD GAS PH 7.407 (7.35-7.45); ARTERIAL BLOOD GAS PO2 94.2 (80-90)
[2021-06-13 13:47] LABS: ABG BASE EXCESS 1.9 mmol/L (-2.0-2.0); ARTERIAL BLOOD GAS PH 7.392 (7.35-7.45); ARTERIAL BLOOD GAS PO2 78.1 (80-90)
[2021-06-13 16:48] LABS: ABG BASE EXCESS 1.4 mmol/L (-2.0-2.0); ARTERIAL BLOOD GAS PH 7.397 (7.35-7.45); ARTERIAL BLOOD GAS PO2 97.2 (80-90)
[2021-06-14] VITALS (96 sets, daily range): BP systolic 74–146; BP diastolic 28–71
[2021-06-14 06:11] LABS: ALKALINE PHOSPHATASE 119 U/L (45-117); BUN 21 mg/dl (7-24); CHLORIDE 108 mmol/L (98-107); CREATININE 0.81 mg/dL (0.55-1.02); SGOT/AST 26 IU/L (3-35); SGPT/ALT 55 U/L (12-78); SODIUM 142 mmol/L (136-145); TOTAL PROTEIN 5.4 gm/dL (6.4-8.2)
[2021-06-14 08:30] LABS: ARTERIAL BLOOD GAS PH 7.447 (7.35-7.45); ARTERIAL BLOOD GAS PO2 65.7 (80-90)
[2021-06-14 13:00] LABS: BASO % 0.2 % (0.0-1.0); EOS # 0.7 10*3/uL (0.0-0.4); EOS % 3.5 % (1.0-4.0); HEMATOCRIT 34.1 % (37.0-47.0); LYMPH # 1.3 10*3/uL (1.3-4.4); LYMPH % 6.8 % (27.0-41.0); MEAN CELL VOLUME 89.7 fl (81.0-99.0); MEAN CORPUSCULAR HGB 28.2 pg (27.0-31.0); MEAN CORPUSCULAR HGB CONC 31.4 g/dl (33.0-37.0); MEAN PLATELET VOLUME 10.3 fl (9.6-12.3); MONO # 1.2 10*3/uL (0.1-1.0); NEUT # 15.8 10*3/uL (2.3-7.9); NEUT % 81.9 % (47.0-73.0); NUCLEATED RED BLOOD CELL 0.2 % (0.0-0.0); PLATELET COUNT AUTOMATED 167 10*3/uL (130-400); RED CELL DISTRI WIDTH 13.6 % (0-14.5); WHITE BLOOD COUNT 19.2 10*3/uL (4.8-10.8)
[2021-06-15] VITALS (28 sets, daily range): BP systolic 54–122; BP diastolic 25–56
[2021-06-15 06:31] LABS: ALBUMIN 1.2 gm/dl (3.1-4.5); CREATININE 1.18 mg/dL (0.55-1.02); TOTAL PROTEIN 4.8 gm/dL (6.4-8.2)
[2021-06-23 02:06] LABS: ORGANISM ID, MOLD Final report (.)
== END 2021-06-15 15:54 | disposition hospice, inpatient (51) | DRG 870 ==
LOC: ED 17:32 → ICCU 19:09 → EDHOLD 19:09 → ICCU 20:37
PROVIDERS: Internal Medicine; Internal Medicine Critical Care Medicine; ADMIT Internal Medicine; ATTEND Internal Medicine
PROC: 5A09557 Assistance with Respiratory Ventilation, Greater than 96 Consecutive Hours, Continuous Positive Airway Pressure (ICD-10-PCS; 2021-05-27)
PROC: XW033E5 Introduction of Remdesivir Anti-infective into Peripheral Vein, Percutaneous Approach, New Technology Group 5 (ICD-10-PCS; principal; 2021-05-28)
PROC: 5A09357 Assistance with Respiratory Ventilation, Less than 24 Consecutive Hours, Continuous Positive Airway Pressure (ICD-10-PCS; 2021-06-01)
PROC: 5A09357 Assistance with Respiratory Ventilation, Less than 24 Consecutive Hours, Continuous Positive Airway Pressure (ICD-10-PCS; 2021-06-02)
PROC: 5A09357 Assistance with Respiratory Ventilation, Less than 24 Consecutive Hours, Continuous Positive Airway Pressure (ICD-10-PCS; 2021-06-03)
PROC: 5A09457 Assistance with Respiratory Ventilation, 24-96 Consecutive Hours, Continuous Positive Airway Pressure (ICD-10-PCS; 2021-06-03)
PROC: 05HB33Z Insertion of Infusion Device into Right Basilic Vein, Percutaneous Approach (ICD-10-PCS; 2021-06-04)
PROC: 5A09457 Assistance with Respiratory Ventilation, 24-96 Consecutive Hours, Continuous Positive Airway Pressure (ICD-10-PCS; 2021-06-05)
PROC: 5A09357 Assistance with Respiratory Ventilation, Less than 24 Consecutive Hours, Continuous Positive Airway Pressure (ICD-10-PCS; 2021-06-08)
PROC: 5A09457 Assistance with Respiratory Ventilation, 24-96 Consecutive Hours, Continuous Positive Airway Pressure (ICD-10-PCS; 2021-06-09)
PROC: 5A1955Z Respiratory Ventilation, Greater than 96 Consecutive Hours (ICD-10-PCS; 2021-06-10)
PROC: 0BH17EZ Insertion of Endotracheal Airway into Trachea, Via Natural or Artificial Opening (ICD-10-PCS; 2021-06-10)
PROC: 02HV33Z Insertion of Infusion Device into Superior Vena Cava, Percutaneous Approach (ICD-10-PCS; 2021-06-10)
PROC: B548ZZA Ultrasonography of Superior Vena Cava, Guidance (ICD-10-PCS; 2021-06-10)
DX: A41.9 Sepsis, unspecified organism (principal); U07.1 COVID-19; J12.82 Pneumonia due to coronavirus disease 2019; J96.01 Acute respiratory failure with hypoxia; N17.0 Acute kidney failure with tubular necrosis; J15.9 Unspecified bacterial pneumonia; E44.0 Moderate protein-calorie malnutrition; N39.0 Urinary tract infection, site not specified; N18.5 Chronic kidney disease, stage 5; D72.810 Lymphocytopenia; B96.20 Unspecified Escherichia coli [E. coli] as the cause of diseases classified elsewhere; R65.20 Severe sepsis without septic shock; I95.9 Hypotension, unspecified; E03.9 Hypothyroidism, unspecified; R04.0 Epistaxis; E66.9 Obesity, unspecified; E11.22 Type 2 diabetes mellitus with diabetic chronic kidney disease; I12.9 Hypertensive chronic kidney disease with stage 1 through stage 4 chronic kidney disease, or unspecified chronic kidney disease; F51.04 Psychophysiologic insomnia; K21.00 Gastro-esophageal reflux disease with esophagitis, without bleeding; M47.893 Other spondylosis, cervicothoracic region; M19.90 Unspecified osteoarthritis, unspecified site; F51.01 Primary insomnia; Z82.49 Family history of ischemic heart disease and other diseases of the circulatory system; Z83.3 Family history of diabetes mellitus; Z88.5 Allergy status to narcotic agent; Z68.29 Body mass index [BMI] 29.0-29.9, adult

== ENCOUNTER 2021-06-15 16:03 | Inpatient (IN) | payer OTHER ==
[~2021-06-15] VITALS: Ht 172.7 cm; Wt 79.4 kg
[~2021-06-15 16:03] MED LIST changes: +AMBIEN10 M1 PO
[2021-06-15 16:08] VITALS: BP 63/30
== END 2021-06-15 20:01 | DRG 177 ==
LOC: ICCU 16:03
PROVIDERS: ADMIT Internal Medicine; ATTEND Internal Medicine
DX: U07.1 COVID-19 (principal); J15.9 Unspecified bacterial pneumonia; J12.82 Pneumonia due to coronavirus disease 2019; J96.00 Acute respiratory failure, unspecified whether with hypoxia or hypercapnia; Z66 Do not resuscitate; Z51.5 Encounter for palliative care